=== PATIENT | female | born 1945 | race Caucasian/White ===

== ENCOUNTER 2018-07-30 13:51 | Emergency (ER) | payer OTHER ==
[~2018-07-30] VITALS: Ht 157.5 cm; Wt 79.4 kg
[2018-07-30 14:44] LABS: ABSOLUTE BASOPHIL COUNT 0 /CUMM (0.0-0.2); ABSOLUTE EOSINOPHIL COUNT 0.2 /CUMM (0.0-0.7); ABSOLUTE GRANULOCYTE CT 4.1 /CUMM (1.4-6.5); ABSOLUTE LYMPH COUNT 1.7 /CUMM (1.2-3.4); ABSOLUTE MONOCYTE COUNT 0.5 /CUMM (0.10-0.60); BASOPHIL % 0.5 % (0.0-2.0); EOSINOPHIL % 2.7 % (0-5); GRANULOCYTE % 63.3 % (42.2-75.2); HEMATOCRIT 40.7 % (37-47); MEAN CORPUSCULAR HGB 31.4 PG (27.0-31.0); MEAN CORPUSCULAR VOLUME 92.5 FL (81.0-99.0); MEAN PLATELET VOLUME 7.3 FL (7.4-10.4); PLATELET COUNT 228 /CUMM (130-400); WHITE BLOOD CELL COUNT 6.6 /CUMM (4.8-10.8)
--- NOTE | 2018-07-30 15:56 | ED GENERAL ADULT ---
History of Present Illness General Chief Complaint: General Adult Stated Complaint: SIB WALK-IN CELLULITIS Source: patient Exam Limitations: no limitations Vital Signs & Intake/Output Vital Signs & Intake/Output Vital Signs Date Time Temp Pulse Resp B/P B/P Pulse O2 O2 Flow FiO2 Mean Ox Delivery Rate 07/30 1611 Room Air 07/30 1408 97.5 68 20 162/75 98 Room Air Triage Note: PT SENT TO ER BY WALK IN CLINIC FOR CELLULITIS. WAS SEEN AT WALK IN CLINIC ON THURSDAY AND GIVEN ABX (CEPHALEXIN), RETURNED ON THURSDAY AND TODAY. TODAY WAS REFERRED TO ER THEY FELT THE ABX WEREN'T WORKING QUICKLY ENOUGH. ORIGINAL INJURY WAS AT WORK ON 07/20 WHEN SHE TRIPPED OVER A FOOT STOOL. LAZ VENEGAS EVALUATING AT TRIAGE. Triage Nurses Notes Reviewed? yes Onset: Abrupt Duration: day(s): (07/20), better, continues in ED Timing: single episode today Injury Environment: home Severity: mild, moderate Severity Numbers: 6 No Modifying Factors: none LMP (ages 10-50): post menopausal, unknown : No Patient currently breastfeeds: No HPI: 73-year-old female with a history of hyperlipidemia and hypothyroidism presents for evaluation of possible cellulitis to her right lower extremity. Patient reports that on July 20 she had tripped and bumped her right anterior lower leg causing a small abrasion. Several days later she noted it was turning red and swelling. She went to an urgent care this past Thursday and was started on Keflex. She reports that she return to the urgent care for a recheck and they felt it was not improving quickly enough. They made a luis on Thursday where the redness had been and the redness does appear to be shrinking. There's been no discharge no lymphatic streaking no fever patient is not a diabetic. She feels like the cellulitis has improved however she was referred to the ER for further evaluation. (Teto Munoz) Allergies Coded Allergies: No Known Allergies (08/05/18) Reconcile Medications Doxycycline Hyclate 100 MG TABLET 1 TAB PO BID INFECTION Levothyroxine Sodium 75 MCG TABLET 1 TAB PO DAILY AC THYROID (Reported) Pravastatin Sodium 20 MG TABLET 1 TAB PO DAILY CHOLESTEROL (Reported) Sulfamethoxazole/Trimethoprim (Bactrim Ds Tablet) 800 MG-160 MG TABLET 1 TAB PO BID ABSCESS/CELLULITIS (Ulices Lorenz MD) Past History Travel History Traveled to [place] past 21 day No Medical History Any Pertinent Medical History? 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 No (Teto Munoz) Review of Systems Review of Systems Constitutional: Reports: no symptoms. EENTM: Reports: no symptoms. Respiratory: Reports: no symptoms. Cardiovascular: Reports: no symptoms. GI: Reports: no symptoms. Genitourinary: Reports: no symptoms. Musculoskeletal: Reports: no symptoms. Skin: Reports: see HPI, erythema. Neurological/Psychological: Reports: no symptoms. Hematologic/Endocrine: Reports: no symptoms. Immunologic/Allergic: Reports: no symptoms. All Other Systems: Reviewed and Negative (Teto Munoz) Physical Exam Physical Exam General Appearance: well developed/nourished, no apparent distress, alert, awake Head: atraumatic, normal appearance Eyes: Bilateral: normal appearance, EOMI. Ears, Nose, Throat: hearing grossly normal Neck: normal inspection, supple, full range of motion Respiratory: no respiratory distress Peripheral Pulses: 2+ tibialis posterior (R), 2+ tibialis posterior (L), 2+ dorsalis pedis (R), 2+ dorsalis pedis (L) Gastrointestinal: soft, non-tender Back: normal inspection, normal range of motion Extremities: normal range of motion, there is a superficial abrasion to the anterior right lower leg. There is some surrounding erythema. A luis is made around the erythema and it appears the erythema has receded from the time of the luis. There is no focal fluctuant areas the erythema is a salmon-colored. The area is tender to palpation over the abrasion. No calf swelling or tenderness full range of motion of the ankle and knee are intact without pain neurovascular supply intact no lymphatic streaking Neurologic/Psych: no motor/sensory deficits, awake, alert, oriented x 3, normal gait Skin: intact, normal color, warm/dry Core Measures ACS in differential dx? No CVA/TIA Diagnosis: No Sepsis Present: No Sepsis Focused Exam Completed? No (Teto Munoz) Progress Differential Diagnoses I considered the following diagnoses in my evaluation of the patient: [ Cellulitis, abscess, DVT, fracture, compartment syndrome] Plan of Care: Orders Procedure Date/time Status LACTIC ACID 07/30 141 Complete COMPREHENSIVE METABOLIC PANEL 07/30 1417 Complete CBC WITHOUT DIFFERENTIAL 07/30 1417 Complete Laboratory Tests 07/30/18 1430: Anion Gap 10, Estimated GFR > 60, BUN/Creatinine Ratio 24.3, Glucose 98, Lactic Acid 0.7, Calcium 9.7, Total Bilirubin 0.6, AST 28, ALT 27, Alkaline Phosphatase 64, Total Protein 6.8, Albumin 4.3, Globulin 2.5, Albumin/Globulin Ratio 1.7, CBC w Diff NO MAN DIFF REQ, RBC 4.40, MCV 92.5, MCH 31.4 H, MCHC 34.0, RDW 14.0 , MPV 7.3 L, Gran % 63.3, Lymphocytes % 25.4, Monocytes % 8.1, Eosinophils % 2.7, Basophils % 0.5, Absolute Granulocytes 4.1, Absolute Lymphocytes 1.7, Absolute Monocytes 0.5, Absolute Eosinophils 0.2, Absolute Basophils 0 Patient is here for evaluation of a cellulitis to the right lower extremity. She was started on Keflex on Thursday of this week and feels like it has had proved but there still is erythema present. The erythema has receded from the marked area that was placed on Thursday. A bedside ultrasound was performed and there is no evidence of an abscess or significant cellulitis based on ultrasound criteria. She is afebrile is no lymphatic streaking she does not have a white count negative lactic acid. She'll be instructed to continue Keflex. Bactrim will be added in case there is MRSA here. Advised her to keep the area elevated and clean and dry. Tylenol for pain return for another wound check in 2 or 3 days discussed return precautions patient agrees the plan case discussed with dr lorenz he agrees. Initial ED EKG: none (Teto Munoz) Departure Departure Disposition: HOME OR SELF CARE Condition: Stable Clinical Impression Primary Impression: Cellulitis Qualifiers: Site of cellulitis: extremity Site of cellulitis of extremity: lower extremity Laterality: right Qualified Code: L03.115 - Cellulitis of right lower limb Referrals: Atul BARNEY,Arturo Zamora (PCP/Family) Additional Instructions: CONTIUE TO TAKE ANTIBIOTICS DIRECTED. ALSO START TAKING BACTRIM FOR FULL COURSE. RETURN TO THE ER ON THURSDAY FOR A RECHECK. RETURN SOONER WITH SPREADING REDNESS, FEVER, DISCHARGE OR PAIN. Departure Forms: Customer Survey General Discharge Information Industrial Accident Report Prescriptions: Current Visit Scripts Sulfamethoxazole/Trimethoprim (Bactrim Ds Tablet) 1 TAB PO BID #20 TAB (Teto Munoz) PA/PEPPER PICKER Co-Sign Statement Statement: ED Attending supervision documentation- I saw and evaluated the patient. I have also reviewed all the pertinent lab results and diagnostic results. I agree with the findings and the plan of care as documented in the PA's/PEPPER PICKER's documentation. x I have reviewed the ED Record and agree with the PA's/PEPPER PICKER's documentation. [] Additions or exceptions (if any) to the PAs/PEPPER PICKER's note and plan are summarized below: [] (Hossein BARNEY,Ulices) Critical Care Note Critical Care Note Critical Care Time: non-applicable (Teto Munoz)
[2018-07-30] MEDS ORDERED: BACTRIM DS TAB1 EACH PO (16:19)
[2018-07-30 16:22] VITALS: BP 174/73
== END 2018-07-30 16:30 ==
LOC: ERH 13:51
PROVIDERS: Physician Assistant Medical
DX: L03.115 Cellulitis of right lower limb (principal); E78.5 Hyperlipidemia, unspecified; K21.9 Gastro-esophageal reflux disease without esophagitis; E03.9 Hypothyroidism, unspecified; Z87.891 Personal history of nicotine dependence; F10.10 Alcohol abuse, uncomplicated

== ENCOUNTER 2018-08-03 08:20 | Emergency (ER) | payer OTHER ==
[~2018-08-03] VITALS: Ht 157.5 cm; Wt 78.0 kg
[~2018-08-03 08:20] MED LIST: BACTRIM DS TAB1 EACH PO
--- NOTE | 2018-08-03 08:57 | ED SKIN/ALLERGY COMPLAINT ---
History of Present Illness General Chief Complaint: Suture Removal/Wound Recheck Stated Complaint: WOUND RECHECK (RT LEG) Source: patient, old records Exam Limitations: no limitations Vital Signs & Intake/Output Vital Signs & Intake/Output Vital Signs Date Time Temp Pulse Resp B/P B/P Pulse O2 O2 Flow FiO2 Mean Ox Delivery Rate 08/03 0828 97.8 76 20 126/68 98 Room Air Allergies Coded Allergies: No Known Allergies (07/30/18) Reconcile Medications Levothyroxine Sodium 75 MCG TABLET 1 TAB PO DAILY AC THYROID (Reported) Pravastatin Sodium 20 MG TABLET 1 TAB PO DAILY CHOLESTEROL (Reported) Sulfamethoxazole/Trimethoprim (Bactrim Ds Tablet) 800 MG-160 MG TABLET 1 TAB PO BID ABSCESS/CELLULITIS Triage Note: WOUND CHECK TO RIGHT SCHREIBER. PT STILL TAKING CEPHALEXIN 500 MG AND BACTRIM. PT FEELS THE WOUND IS BETTER THE REDNESS HAS DIMINISHED SOMEWHAT BUT STATES IT STILL REMAINS TENDER Triage Nurses Notes Reviewed? yes Onset: Gradual Duration: day(s): Timing: recent history Severity: moderate Location: extremities HPI: 73-year-old female with history of hyperlipidemia, thyroid disease presents to emergency Department for wound check. Patient was diagnosed with cellulitis to right anterior schreiber 5-6 DAYS AGO and has been taking Keflex and Bactrim antibiotics. She started Keflex 5-6 days ago from an urgent care. She was seen and evaluated in the emergency department 4 days ago and was started on Bactrim. Return for a wound check 2 days ago and was instructed to continue antibiotics. She reports that since these visits and her antibiotic use her symptoms have improved, redness is decreasing in size and in pain. Central area is still described as tender. The patient denies fevers, chills, malaise, abdominal pain , vomiting. (Hyun Yeager) Past History Travel History Traveled to [place] past 21 day No Medical History Any Pertinent Medical History? 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 No (Hyun Yeager) Review of Systems Review of Systems Constitutional: Reports: no symptoms. EENTM: Reports: no symptoms. Respiratory: Reports: no symptoms. Cardiovascular: Reports: no symptoms. GI: Reports: no symptoms. Genitourinary: Reports: no symptoms. Musculoskeletal: Reports: no symptoms. Skin: Reports: see HPI. Neurological/Psychological: Reports: no symptoms. Hematologic/Endocrine: Reports: no symptoms. Immunologic/Allergic: Reports: no symptoms. All Other Systems: Reviewed and Negative (Hyun Yeager) Physical Exam Physical Exam General Appearance: well developed/nourished, no apparent distress, alert, awake Head: atraumatic, normal appearance Eyes: Bilateral: normal appearance. Ears, Nose, Throat: hearing grossly normal Neck: normal inspection, supple, full range of motion Respiratory: normal breath sounds, no respiratory distress, lungs clear Cardiovascular: regular rate/rhythm Back: normal inspection, normal range of motion Extremities: half dollar sized area of erythema to right anterior schreiber with central crusting, no drainage, mild tenderness, no fluctuance, mild surrounding erythema, left upper arm with half dollar sized area of erythema, nontender Neurologic/Psych: awake, alert, oriented x 3 Skin: see extremities exam above for description of erythema (Hyun Yeager) Progress Differential Diagnosis: abscess/cellulitis, allergic reaction, contact dermatitis, urticaria Plan of Care: Erythema of the left upper extremity is related to patient's recent tetanus vaccine, the area is nontender, no fluctuance to indicate an abscess, patient started on appropriate medications for cellulitis. Patient's cellulitis to right lower extremity has improved since beginning antibiotics, further antibiotics are still required for complete resolution of this infection, the patient has no systemic signs and symptoms of infection such as fever, chills, malaise. Patient instructed to complete course of antibiotics and follow up here or with her primary care doctor for repeat wound check. Dr. Ramsey present to see and evaluate this patient and her cellulitis. He agrees with the plan of care. Patient understands her diagnosis and complications which warrant return to hospital. She agrees with the plan of care. The patient is in no acute distress, nontoxic appearing, her vital signs are stable. (Hyun Yeager) Departure Departure Disposition: HOME OR SELF CARE Condition: Stable Clinical Impression Primary Impression: Cellulitis Qualifiers: Site of cellulitis: extremity Site of cellulitis of extremity: lower extremity Laterality: right Qualified Code: L03.115 - Cellulitis of right lower limb Secondary Impressions: Visit for wound check Referrals: Atul BARNEY,Arutro Zamora (PCP/Family) Additional Instructions: Continue Bactrim and Keflex antibiotics as prescribed. Rinse the area with soap and water daily. Return here or follow-up with her primary care physician in 2 days. Return sooner if you experience fevers, vomiting, feeling ill. Please note that there might be incidental findings in your evaluation that are unrelated to the current emergency department visit. Please notify your primary care doctor about this emergency department visit in order to obtain and review all of the testing performed so that these incidental findings can be monitored as needed. If you had an x-ray performed, please understand that some fractures may not be seen on the initial set of x-rays. If your symptoms persist you might need a repeat set of x-rays to check for such a fracture. If you had a laceration evaluated, please understand that foreign bodies such as glass or wood may not be visible to the naked eye or on plain x-rays. If the wound becomes red, swollen, increasingly more painful or if there is any drainage from the wound, please have it reevaluated by a physician for the possibility of a retained foreign body. If you're unable to follow up as outlined in the discharge instructions please return to the emergency department. Thank you for choosing the [facility] Emergency Department for your care. It was a pleasure to serve you today. Departure Forms: Customer Survey General Discharge Information (Smiley NESBITT,Hyun Mata) PA/MOSAICIST Co-Sign Statement Statement: ED Attending supervision documentation- [x] I saw and evaluated the patient. I have also reviewed all the pertinent lab results and diagnostic results. I agree with the findings and the plan of care as documented in the PA's/MOSAICIST's documentation. [] I have reviewed the ED Record and agree with the PA's/MOSAICIST's documentation. [] Additions or exceptions (if any) to the PAs/MOSAICIST's note and plan are summarized below: [] (Roxy BARNEY,Frank Sanchez)
[2018-08-03] MEDS ORDERED: LEVOTHYROXINE75 MCG PO (09:05)
[2018-08-03] MEDS ORDERED: PRAVASTATIN SOD20 M2 PO (09:06)
[2018-08-03 09:48] VITALS: BP 123/62
== END 2018-08-03 09:49 ==
LOC: ERH 08:20
DX: L03.115 Cellulitis of right lower limb (principal); Z87.891 Personal history of nicotine dependence

== ENCOUNTER 2018-08-05 06:52 | Emergency (ER) | payer OTHER ==
[~2018-08-05] VITALS: Ht 157.5 cm; Wt 78.0 kg
[~2018-08-05 06:52] MED LIST changes: +LEVOTHYROXINE75 MCG PO; +PRAVASTATIN SOD20 M2 PO
[2018-08-05 07:02] VITALS: BP 166/77
--- NOTE | 2018-08-05 07:13 | ED SKIN/ALLERGY COMPLAINT ---
History of Present Illness General Chief Complaint: Lower Extremity Problems Stated Complaint: "I NEED A RECHECK OF MY INFECTION ON MY RIGHT LEG" Source: patient Exam Limitations: no limitations Vital Signs & Intake/Output Vital Signs & Intake/Output Vital Signs Date Time Temp Pulse Resp B/P B/P Pulse O2 O2 Flow FiO2 Mean Ox Delivery Rate 08/05 0704 100 Room Air 08/05 0702 97.6 70 18 166/77 100 Room Air Allergies Coded Allergies: No Known Allergies (08/05/18) Reconcile Medications Levothyroxine Sodium 75 MCG TABLET 1 TAB PO DAILY AC THYROID (Reported) Pravastatin Sodium 20 MG TABLET 1 TAB PO DAILY CHOLESTEROL (Reported) Sulfamethoxazole/Trimethoprim (Bactrim Ds Tablet) 800 MG-160 MG TABLET 1 TAB PO BID ABSCESS/CELLULITIS Triage Note: TRIAGE: PATGIENT TO ER FROM HOME FOR WOUND RECHECK S/P WOUND ON 2017 S/P TRIP AND FALL ONTO STOOL. PATIENT REPORTS TAKING ABX DIRECTED, "NOT BETTER, NOT WORSE. HAD U/S DONE AND IT LOOKED OKAY." NO REDNESS EXTENDING PAST PREVIOUSLY MARKED AREA. Triage Nurses Notes Reviewed? yes HPI: 73-year-old female presents for wound check. Patient has lower extremity cellulitis. She has been on antibiotics including Keflex and Bactrim. She denies any fevers or chills. She believes the redness is getting slightly better. There is been no drainage. Patient has a moderate amount of pain that is worse with palpation. Pain does not radiate. There is no numbness or tingling associated. From a previous visit, patient had an ultrasound which identified no drainable abscess. Past History Travel History Traveled to [place] past 21 day No Medical History Any Pertinent Medical History? 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 No Review of Systems Review of Systems Constitutional: Denies: no symptoms. EENTM: Denies: no symptoms. Respiratory: Denies: no symptoms. Cardiovascular: Denies: no symptoms. GI: Denies: no symptoms. Genitourinary: Denies: no symptoms. Musculoskeletal: Denies: no symptoms. Skin: Reports: erythema. Neurological/Psychological: Denies: no symptoms. Hematologic/Endocrine: Denies: no symptoms. All Other Systems: Reviewed and Negative Physical Exam Physical Exam General Appearance: well developed/nourished, no apparent distress, alert, awake Head: atraumatic, normal appearance Eyes: Bilateral: normal appearance. Neck: normal inspection, supple Respiratory: no respiratory distress Back: normal inspection Extremities: normal capillary refill, no edema Neurologic/Psych: no motor/sensory deficits, awake, alert Skin: right lower ext cellulitic changes associated with fluctuance. Progress Differential Diagnosis: abscess/cellulitis Plan of Care: Patient to have I and D. Will continue ABX. Will need follow up with PMD. Departure Departure Disposition: HOME OR SELF CARE Condition: Stable Clinical Impression Primary Impression: Abscess of leg Secondary Impressions: Cellulitis of leg Referrals: Atul BARNEY,Arturo Zamora (PCP/Family) Departure Forms: Customer Survey General Discharge Information Procedures Incision and Drainage Blade Size: 11 I & D Procedure: Yes: betadine prep, sterile drapes applied, sterile dressing applied. No: wick placed. Progress: Trace purulent discharge, bloody discharge, hematoma evacuated
[2018-08-05] MEDS ORDERED: DOXYCYCLINE HY100 M4 PO (07:35)
== END 2018-08-05 07:39 ==
LOC: ERH 06:52
DX: L02.415 Cutaneous abscess of right lower limb (principal); L03.115 Cellulitis of right lower limb; E78.5 Hyperlipidemia, unspecified; K21.9 Gastro-esophageal reflux disease without esophagitis